=== PATIENT | male | born 1980 | race Caucasian/White ===

== ENCOUNTER 2016-06-17 08:49 | Emergency (ER) | payer SELFPAY ==
[~2016-06-17] VITALS: Ht 170.2 cm; Wt 78.5 kg
[~2016-06-17 08:49] MED LIST: ALBU1AER INH; BENZ100 PO; DEXTLIQ PO; PRED20 PO; ZITH250T PO
[2016-06-17 08:51] VITALS: BP 161/100; PULSE 106; RESP 20; TEMP 97.8; O2SAT 97
[2016-06-17 09:03] VITALS: BP 146/96; PULSE 88; RESP 16; TEMP 97.5; O2SAT 96
[2016-06-17] MEDS ORDERED: IBUP800T23 PO (10:10)
[2016-06-17] MEDS ORDERED: BACT800T5 PO (10:10)
[2016-06-17] MEDS ORDERED: CEPH-460 PO (10:10)
--- NOTE | 2016-06-17 10:10 | PD ---
HPI Chief Complaint: Skin Problem Time Seen by Provider: 09:55 Travel History International Travel<30 days: No Contact w/Intl Traveler<30days: No Traveled to known affect area: No History of Present Illness HPI Patient is a 35-year-old male who presents emergency department for evaluation of an abscess under his left arm. He states it's been there for approximately 3 days, he's been squeezing it and expressing pus from it however it continues to get more swollen and painful. He denies any fever, chills, shortness of breath or chest pain. He denies any IV drug use. [facility] Past Medical History Medical History: Denies Significant Hx Past Surgical History Other Surgery: Yes (SPLEENECTOMY 2013) Social History Alcohol Use: Yes (LAST NIGHT) Tobacco Use: Yes Substance Use: Yes (POT SMOKER) Allergies-Medications (Allergen,Severity, Reaction): Coded Allergies: No Known Allergies (Unverified , 06/17/16) Reported Meds & Prescriptions Reported Meds & Active Scripts Active No Active Prescriptions or Reported Medications Review of Systems Except as stated in HPI: all other systems reviewed are Neg Musculoskeletal: Positive: Myalgias, Edema Skin: Positive Change in Pigmentation Physical Exam Narrative GENERAL: Well-nourished, well-developed patient. SKIN: Warm and dry. 2 and half centimeter of erythema induration noted to the left axillary area, mildly fluctuant to palpation, moderately tender to palpation and warm to the touch. HEAD: Normocephalic. EYES: No scleral icterus. No injection or drainage. NECK: Supple, trachea midline. No JVD or lymphadenopathy. CARDIOVASCULAR: Regular rate and rhythm without murmurs, gallops, or rubs. RESPIRATORY: Breath sounds equal bilaterally. No accessory muscle use. GASTROINTESTINAL: Abdomen soft, non-tender, nondistended. MUSCULOSKELETAL: No cyanosis, or edema. BACK: Nontender without obvious deformity. No CVA tenderness. Data Data Last Documented VS Vital Signs Date Time Temp Pulse Resp B/P Pulse Ox O2 Delivery O2 Flow Rate FiO2 06/17/16 09:03 97.5 88 16 146/96 96 Room Air MDM Medical Decision Making Medical Screen Exam Complete: Yes Emergency Medical Condition: Yes Interpretation(s) Vital Signs Date Time Temp Pulse Resp B/P Pulse Ox O2 Delivery O2 Flow Rate FiO2 06/17/16 09:03 97.5 88 16 146/96 96 Room Air 06/17/16 08:51 97.8 106 20 161/100 97 Room Air Differential Diagnosis Boil versus cyst versus abscess versus cellulitis versus other Narrative Course Patient is a 35-year-old male who presented to emergency room for evaluation of an abscess to his left axilla. It has been there for 3 days, he has been expressing purulent drainage but his symptoms continue to worsen. Please see procedure report for I&D. Wound culture ordered and sent, patient be placed on oral antibiotics. He is encouraged to return to emergency department 2 days to have packing removed, sooner if he notices the redness spreading despite antibiotic therapy or if he had any new signs or symptoms. Patient was encouraged follow-up with his primary care provider as well. Patient verbalizes understanding for need for follow-up in 48 hours again sooner if any new or worsening symptoms arise. Patient is stable for discharge. Procedures Procedure Narrative After the risks and benefits were discussed the following procedure was performed: INCISION AND DRAINAGE OF ABSCESS: The area was prepped and was sterilely draped. A subcutaneous wheal of 1% Xylocaine with a total number 2 mL was used to anesthetize the area. The area was properly anesthetized. A number 11 scalpel was used to make a 1-cm incision across the area of the abscess. Cultures were obtained. The abscess was drained an irrigated with normal saline. Quarter inch iodoform packing was placed in the wound. Sterile dressing applied. Patient advised to have packing removed in two days. Diagnosis Primary Impression: Cellulitis and abscess of unspecified site Referrals: Primary Care Physician Patient Instructions: Abscess (GEN), Abscess Follow-up (ED), Abscess Incision and Drainage (ED), General Instructions Additional Instructions: Return to emergency department in 48 hours to have packing removed Return to the emergency department immediately for any new or worsening symptoms Complete full course of antibiotics as directed even if you begin to feel better Apply warm moist, compresses to affected area Med/Other Pt SpecificInfo: Prescription(s) given Scripts Ibuprofen 800 Mg [id number] Mg PO Q6HR PRN (PAIN) #40 TAB Ref 0 Prov:Elba Laughlin 06/17/16 Cephalexin (Keflex)500 Mg [id number] Mg PO Q12H 10 Days Ref 0 Prov:Elba Laughlin 06/17/16 Sulfamethoxazole-Trimethoprim (Bactrim DS)800-160 Mg Tab1 Tab PO BID #20 TAB Ref 0 Prov:Elba Laughlin 06/17/16 Disposition: 01 DISCHARGE HOME Condition: Stable Elba Laughlin Jun 17, 2016 10:10
[2016-06-17] MEDS ORDERED: LIDOCAINE 1%/EPINEPHrine 1:100,000 SOLN 20 ML VIAL INFIL ONE (10:15)
== END 2016-06-17 10:20 | disposition home or self-care (01) ==
LOC: NEPB 08:49
DX: L02.412 Cutaneous abscess of left axilla (principal); L03.114 Cellulitis of left upper limb; B95.62 Methicillin resistant Staphylococcus aureus infection as the cause of diseases classified elsewhere; Z72.0 Tobacco use; F12.90 Cannabis use, unspecified, uncomplicated
CPT/HCPCS: 10061; 86403; 87070; 87186